=== PATIENT | male | born 1975 | race Caucasian/White ===

== ENCOUNTER 2017-06-03 18:39 | Emergency (ER) | payer OTHER ==
[2017-06-03 18:55] VITALS: BP 138/89; PULSE 73; TEMP 98.4; BMI 23.1
--- NOTE | 2017-06-03 19:21 | PDOC ---
History of Present Illness - General History Source: Patient Exam Limitations: No Limitations - History of Present Illness Initial Comments: 06/03/17 19:39 Patient is a 42 year old male with pmhx of kidney stones who presents to the ED with nausea and diarrhea for 5 days. Patient states that his birthday was on [birth year] and on Monday he started not feeling well with flu like symptoms he reports irritated throat, generalized weakness, diarrhea and nausea. Patient reports 3-4 episodes of watery diarrhea NBNB with associated nausea no vomiting. Patient reports normal PO intake. He also reports abdominal pain, generalized joint weakness. He denies fever or chills. He denies any recent travel. He denies any head trauma or LOC. He denies eating any raw food. He also states that [place] and was stung by multiple bees about 6. PMD - none ALL - none SH - smoker, marijuana use <Gisselle Shelton - Last Filed: 06/03/17 19:39> - General History Source: Patient Exam Limitations: No Limitations - History of Present Illness Travel History: No <Charity Roland - Last Filed: 06/04/17 00:14> - General Chief Complaint: Diarrhea Stated Complaint: NAUSEA & DIARRHEA Time Seen by Provider: 06/03/17 19:20 Past History <Gisselle Shelton - Last Filed: 06/03/17 19:39> - Past Medical History Kidney Stones: Yes - Psycho/Social/Smoking Cessation Hx Anxiety: No Suicidal Ideation: No Smoking Status: Yes Smoking History: Current some day smoker Have you smoked in the past 12 months: Yes Number of Cigarettes Smoked Daily: 20 Cigars Per Day: 0 Information on smoking cessation initiated: Yes 'Breaking Loose' booklet given: 06/03/17 Hx Alcohol Use: Yes (OCCASIONAL) Drug/Substance Use Hx: Yes (MARIJUANA DAILY) Substance Use Type: Marijuana <Charity Roland - Last Filed: 06/04/17 00:14> - Past Medical History Allergies/Adverse Reactions: Allergies Allergy/AdvReac Type Severity Reaction Status Date / Time No Known Allergies Allergy Verified 06/03/17 18:47 Home Medications: Ambulatory Orders Methylprednisolone [Medrol Dose Cruz] 4 mg PO ASDIR #21 tablet 06/03/17 Ondansetron HCl [Zofran] 4 mg PO BID PRN #8 tablet 06/03/17 Review of Systems - Review of Systems Able to Perform ROS?: Yes Comments:: 06/03/17 19:40 GENERAL/CONSTITUTIONAL: No: fever, chills, weakness, loss of appetite. HEAD, EYES, EARS, NOSE AND THROAT: No: change in vision, ear pain, discharge, sore throat, throat swelling. CARDIOVASCULAR: No: chest pain, lightheadedness, palpitations, syncope RESPIRATORY: No: cough, shortness of breath, wheezing, hemoptysis, stridor. GASTROINTESTINAL: (+)nausea, diarrhea, abdominal pain. No: abdominal cramping, rectal bleeding, constipation. GENITOURINARY: No: dysuria, hematuria, frequency, urgency, flank pain. MUSCULOSKELETAL: No: back pain, neck pain, joint pain, muscle swelling or pain SKIN: No: lesions, pallor, rash or easy bruising. NEUROLOGIC: No: headache, vertigo, paresthesias, weakness ENDOCRINE: No: unexplained weight gain or loss HEMATOLOGIC/LYMPHATIC: No: anemia, easy bleeding, swelling nodes <Gisselle Shelton - Last Filed: 06/03/17 19:39> *Physical Exam - Vital Signs Last Vital Signs Temp Pulse Resp BP Pulse Ox 98.4 F 73 16 138/89 96 06/03/17 18:46 06/03/17 18:46 06/03/17 18:46 06/03/17 18:46 06/03/17 18:46 - Physical Exam Comments: 06/03/17 19:41 GENERAL: The patient is in no acute distress. HEAD: Normal with no signs of trauma. EYES: PERRLA, EOMI, sclera anicteric, conjunctiva clear. ENT: Ears normal, nares patent, oropharynx clear without exudates. Moist mucous membranes. NECK: Normal range of motion, supple without lymphadenopathy, JVD, or masses. LUNGS: Breath sounds equal, clear to auscultation bilaterally. No wheezes, and no crackles. HEART:Regular rate and rhythm, normal S1 and S2 without murmur, rub or gallop. ABDOMEN: (+)LLQ tenderness to palpation. Soft, normoactive bowel sounds. No guarding, no rebound. EXTREMITIES: Normal range of motion, no edema. No clubbing or cyanosis. No erythema, or tenderness. NEUROLOGICAL: Cranial nerves II through XII grossly intact. Normal speech. No focal neurological deficits. MUSCULOSKELETAL: Back nontender to palpation, no CVA tenderness SKIN: Warm, Dry, normal turgor, no rashes or lesions noted. <Gisselle Shelton - Last Filed: 06/03/17 19:39> - Vital Signs Last Vital Signs Temp Pulse Resp BP Pulse Ox 98.4 F 73 16 138/89 96 06/03/17 18:46 06/03/17 18:46 06/03/17 18:46 06/03/17 18:46 06/03/17 18:46 <Charity Roland - Last Filed: 06/04/17 00:14> ED Treatment Course - LABORATORY CBC & Chemistry Diagram: 06/03/17 19:10 06/03/17 19:10 - ADDITIONAL ORDERS Additional order review: 06/03/17 19:10 RBC 5.75 H MCV 91.5 MCHC 34.1 RDW 12.8 MPV 9.2 Neutrophils % 59.2 Lymphocytes % 22.6 Monocytes % 12.9 H Eosinophils % 4.6 H Basophils % 0.7 <Gisselle Shelton - Last Filed: 06/03/17 19:39> - LABORATORY CBC & Chemistry Diagram: 06/03/17 19:10 06/03/17 19:10 <Charity Roland - Last Filed: 06/04/17 00:14> Medical Decision Making - Medical Decision Making 06/03/17 19:21 A portion of this note was documented by scribe services under my direction. I have reviewed the details of the note, within reason, and agree with the documentation with the following case summary and management plan written by me. Nursing documentation reviewed and incorporated into medical decision making 06/03/17 22:12 This is a 42 yo M with no significant past medical history presenting to the ER with 5 days of diarrhea and LLQ pain Pt states that he was stung by several bees last week No immediate reaction (besides a local skin reaction) Diarrhea began 5 days ago Pain began 2 days ago No fevers or chills (+) nausea no vomiting tolerating liquids Pt has had arthralgias and myalgias He has felt "ill" overall On examination LLQ tenderness No erythema or rash where pt was stung RRR CTA LLQ and suprapubic tenderness to palpation 1. labs 2. CT 3. IVF 4. Zofran 5. re assess 06/03/17 22:17 Laboratory Tests 06/03/17 06/03/17 19:10 19:10 WBC 7.9 Hgb 17.9 H Hct 52.6 H Plt Count 231 Neutrophils % 59.2 Lymphocytes % 22.6 Monocytes % 12.9 H Eosinophils % 4.6 H Basophils % 0.7 Sodium 135 L Potassium 4.1 Chloride 101 Carbon Dioxide 26 BUN 18 D Creatinine 1.[address]: Hepatomegaly Gallbladder, pancreas, adrenal glands and spleen are unremarkable meseneric lyhmph nodes Liquid stool - ? mild colitis No diverticulitis, appy, sbo, free fluid or free air Will discharge to home Will ask pt to follow up with PMD Pt concerned that he has serum sickness given the multiple bee stings he sustained last week I have asked him to follow up with a primary care physician in this regard Return to the ER for any other concerns or complaints I discussed the physical exam findings, ancillary test results and final diagnoses with the patient. I answered all of the patient's questions. The patient was satisfied with the care received and felt comfortable with the discharge plan and treatment plan. The patient will call their primary care physician within 24 hours to arrange follow-up and will return to the Emergency Department with any new, persistent or worsening symptoms. 06/04/17 00:13 <Charity Roland - Last Filed: 06/04/17 00:14> *DC/Admit/Observation/Transfer - Attestations Scribe Attestion: 06/03/17 19:41 Documentation prepared by JOSE العراقي, acting as medical coding manager for Charity Roland MD. <Gisselle Shelton - Last Filed: 06/03/17 19:39> - Discharge Dispostion Admit: No <Charity Roland - Last Filed: 06/04/17 00:14> Diagnosis at time of Disposition: Diarrhea Qualifiers: Diarrhea type: unspecified type Qualified Code(s): R19.7 - Diarrhea, unspecified - Discharge Dispostion Disposition: HOME Condition at time of disposition: Stable - Prescriptions Prescriptions: Methylprednisolone [Medrol Dose Cruz] 4 mg PO ASDIR #21 tablet Ondansetron HCl [Zofran] 4 mg PO BID PRN #8 tablet PRN Reason: Nausea - Referrals Referrals: Miroslava Ramos MD [Non Staff, Medical] - - Patient Instructions Printed Discharge Instructions: Diarrhea, DI for Vomiting -- Adult, DI for General Allergic Reactions Additional Instructions: Mr. Harper Thank you for coming in to the ER today Please review your CT scan results Please follow up with your doctor at [facility] in 2 days Please monitor yourself for fevers You CT scan demonstrates possibly mild colitis Your CT scan will be re read tomorrow If there are any other finding, we will contact you Please stay hydrated as much as possible You can take Zofran for your nausea to settle your stomach Please eat what is tolerable for you I understand your concern about serum sickness Please take steroids as prescribed This may or may not help you Please follow up with your primary care physician - Post Discharge Activity Work/School Note: Back to Work
[2017-06-03] MEDS ORDERED: SODIUM CHLORIDE 1,000 ML IV STA (19:35)
[2017-06-03] MEDS ORDERED: ONDANSETRON 4 MG/2 ML VIAL IVPB ONE (19:35)
[2017-06-03 19:37] LABS: BASOPHIL 0.7 % (0-2.0); EOSINOPHIL 4.6 % (0-4.5); MCH 31.2 pg (25.7-33.7); MCHC 34.1 g/dl (32.0-35.9); MEAN CELL VOLUME 91.5 fl (80-96); MEAN PLT VOLUME 9.2 fl (7.5-11.1); NEUTROPHILS 59.2 % (42.8-82.8); PLATELET COUNT 231 K/MM3 (134-434); RDW 12.8 % (11.9-15.9); WHITE BLOOD COUNT 7.9 K/mm3 (4.0-10.8)
[2017-06-03] MEDS ORDERED: ONDANSETRON 4 MG/2 ML VIAL ONE (19:37)
[2017-06-03 19:39] LABS: ALBUMIN 3.9 g/dl (3.5-5.0); ALK PHOS 106 U/L (32-92); ANION GAP 8 (8-16); BILIRUBIN,TOTAL 0.3 mg/dl (0.2-1.0); CALCIUM 9.7 mg/dl (8.4-10.2); CO2 26 mmol/L (22-28); CREATININE 1.2 mg/dl (0.6-1.3); GLUCOSE,RANDOM 95 mg/dl (74-106); SGOT/AST 29 U/L (10-42); SGPT/ALT 36 U/L (10-40); TOT PROT 7.2 g/dl (6.4-8.3)
== END 2017-06-03 22:42 | disposition home or self-care (01) ==
LOC: FER 18:39
PROC: 3E033GC Introduction of Other Therapeutic Substance into Peripheral Vein, Percutaneous Approach (ICD-10-PCS; principal; 2017-06-03)
PROC: 3E0337Z Introduction of Electrolytic and Water Balance Substance into Peripheral Vein, Percutaneous Approach (ICD-10-PCS; 2017-06-03)
DX: R19.7 Diarrhea, unspecified (principal)
CPT/HCPCS: 36415; 74177-TC; 80053; 83735; 85025; 99283-25